=== PATIENT | female | born 1960 | race Caucasian/White ===

== ENCOUNTER 2020-03-13 16:20 | Emergency (ER) | payer SELFPAY ==
[~2020-03-13] VITALS: Ht 162.6 cm; Wt 81.2 kg
[2020-03-13 16:35] VITALS: BP_SYST 147
[2020-03-13 19:00] VITALS: BP_SYST 144
== END 2020-03-13 19:01 | disposition home or self-care (01) ==
LOC: SED 16:20
DX: M62.830 Muscle spasm of back (principal); M54.5 Low back pain; I10 Essential (primary) hypertension; Z88.6 Allergy status to analgesic agent
CPT/HCPCS: 72100-TC; 99283